=== PATIENT | male | born 1940 | race Two or more races ===

== ENCOUNTER 2018-08-20 13:15 | Outpatient (CLI) | payer OTHER | END 2018-08-20 13:26 | disposition home or self-care (01) | LOC: RAD 501 13:15 | DX: M25.551 Pain in right hip (principal); M25.552 Pain in left hip ==

== ENCOUNTER → 2018-09-05 | Outpatient (CLI) | payer OTHER | END | disposition home or self-care (01) | LOC: RAD 501 13:29 | DX: M79.642 Pain in left hand (principal); M79.641 Pain in right hand; E78.00 Pure hypercholesterolemia, unspecified; I11.9 Hypertensive heart disease without heart failure; I65.23 Occlusion and stenosis of bilateral carotid arteries; K59.01 Slow transit constipation; M51.06 Intervertebral disc disorders with myelopathy, lumbar region; I73.89 Other specified peripheral vascular diseases; R79.89 Other specified abnormal findings of blood chemistry; I34.0 Nonrheumatic mitral (valve) insufficiency; I35.1 Nonrheumatic aortic (valve) insufficiency; I70.0 Atherosclerosis of aorta; R73.09 Other abnormal glucose; J84.10 Pulmonary fibrosis, unspecified; B37.83 Candidal cheilitis; L03.211 Cellulitis of face; B35.6 Tinea cruris; M65.841 Other synovitis and tenosynovitis, right hand; M65.842 Other synovitis and tenosynovitis, left hand; S82.402D Unspecified fracture of shaft of left fibula, subsequent encounter for closed fracture with routine healing; E87.1 Hypo-osmolality and hyponatremia; N14.2 Nephropathy induced by unspecified drug, medicament or biological substance; R77.1 Abnormality of globulin ==